=== PATIENT | male | born 1975 | race Two or more races ===

== ENCOUNTER 2019-03-28 16:32 | Inpatient (IN) | payer OTHER ==
[~2019-03-28] VITALS: Ht 172.7 cm; Wt 78.0 kg
--- NOTE | 2019-03-28 16:47 | NUR ---
JILL JUSTICE AT BEDSIDE FOR EVAL.
--- NOTE | 2019-03-28 16:50 | NUR ---
PT BIBRA/PD. IN CUSTODY, PER REPORT PT WAS AGITATED IN A HOLDING CELL, GOT AGITATED AND POSSIBLY ISERTED A FOREIGN BODY UP HIS RECTUM. PER REPORT, PT WAS GIVEN HALDOL AND ATIVAN PRIOR TO TRANSFER. SEDATED FINISHING POWDER PRESS OPERATOR. PLACED ON MONITOR. VSS. AWAITING MD TENA.
--- NOTE | 2019-03-28 17:12 | NUR ---
ECOLOGY TEACHER AT BEDSIDE FOR BLOOD DRAW.
[2019-03-28 17:17] LABS: BASOPHILS # (AUTO) 0.1 /CMM (0.0-0.2); BASOPHILS % (AUTO) 0.7 % (0.0-2.0); EOSINOPHILS % (AUTO) 2.2 % (0.0-6.0); HEMATOCRIT 39 % (39-51); HEMOGLOBIN 13.3 g/dL (13.5-17.5); LYMPHOCYTES # (AUTO) 1.5 /CMM (0.8-4.8); LYMPHOCYTES % (AUTO) 19.2 % (20.0-44.0); MEAN CORPUSCULAR HGB CONC 34 g/dl (31.0-36.0); MEAN CORPUSCULAR VOLUME 87 fL (80-96); MONOCYTES # (AUTO) 0.8 /CMM (0.1-1.30); MONOCYTES % (AUTO) 10.5 % (2.0-12.0); NEUTROPHILS # (AUTO) 5.2 /CMM (1.8-8.9); NEUTROPHILS % (AUTO) 67.4 % (43.0-81.0); PLATELET COUNT (AUTO) 278 /CMM (150-450); RED BLOOD CELL COUNT(AUTO) 4.49 MIL/uL (4.5-6.0); WHITE BLOOD COUNT (AUTO) 7.7 K/uL (4.3-11.0)
[2019-03-28 17:23] LABS: CALCIUM, SERUM 8.9 mg/dL (8.5-10.1); CARBON DIOXIDE 28 mmol/L (21-32); CHLORIDE 101 mmol/L (98-107); CREATININE 1.4 mg/dL (0.6-1.3); GLUCOSE 102 mg/dL (74-106); POTASSIUM 3.2 mmol/L (3.5-5.1); SODIUM SERUM 138 mmol/L (136-145); UREA NITROGEN, BLOOD 35 mg/dL (7-18)
[2019-03-28 17:29] LABS: ALANINE AMINOTRANSFERASE 27 U/L (12-78); ALBUMIN 3.6 g/dL (3.4-5.0); ALCOHOL, BLOOD < 3 mg/dL (0-0); ALKALINE PHOSPHATASE 81 U/L (46-116); ASPARTATE AMINOTRANSFERASE 34 U/L (15-37); BILIRUBIN,DIRECT 0.2 mg/dL (0.0-0.2); BILIRUBIN,TOTAL 0.7 mg/dL (0.2-1.0); TOTAL PROTEIN, SERUM 7.2 g/dL (6.4-8.2)
[2019-03-28 17:30] LABS: ACETAMINOPHEN < 2 ug/ml (10-30); SALICYLATE < 0.2 mg/dL (2.8-20.0)
[2019-03-28] MEDS ORDERED: POTASSIUM CHLORIDE 20 MEQ TAB.PRT.SR PO ONE (18:30)
[2019-03-28] MEDS ORDERED: IV NS 0.9% 1,000 ML BAG IV ONE (18:30)
[2019-03-28 18:50] LABS: APPEARANCE,URINE SL CLOUDY (CLEAR); BILIRUBIN,URINE 1+ (NEGATIVE); BLOOD, URINE TRACE Ery/uL (NEGATIVE); COLOR,URINE DARK YELLO (YELLOW); KETONES,URINE TRACE (NEGATIVE); LEUKOCYTE ESTERASE ,URINE NEGATIVE (NEGATIVE); NITRITE, URINE NEGATIVE (NEGATIVE); PH,URINE 5.5 (5.0-8.0); PROTEIN,URINE 1+ mg/dl (NEGATIVE); UGLUCOSE NEGATIVE (NEGATIVE); UROBILINOGEN,URINE 0.2 EU/dL (0.2)
--- NOTE | 2019-03-28 18:52 | NUR ---
CALLED DR VALVERDE; HE SPOKE WITH DR RUANO
--- NOTE | 2019-03-28 18:52 | NUR ---
CALLED FOR TELE BED, TURNED IN MOVE SHEET.
--- NOTE | 2019-03-28 19:12 | NUR ---
PT STILL SEDATED, ON MONITOR W/ STABLE VITALS. ENDORSED TO MONICA RN FOR ALLIE.
--- NOTE | 2019-03-28 19:17 | NUR ---
PT ENDORSED TO ME FROM ROSALIE GATES.
[2019-03-28] MEDS ORDERED: Magnesium 1GM/D5W 100ML PREMIX 200 ML IV ONE ×2 (19:18→20:28)
[2019-03-28] MEDS ORDERED: SODIUM BICARBONATE SYR 50 MEQ/50 ML DISP.SYRIN IV ONE (19:30)
[2019-03-28] MEDS ORDERED: MAG HYDROX/AL HYDROX/SIMETH 30 ML UDC PO PRN (20:00)
[2019-03-28] MEDS ORDERED: HYDROCODONE/APAP 5/325MG 1 EACH TABLET PO PRN (20:00)
[2019-03-28] MEDS ORDERED: Z GUARD REMEDY 2 OZ OINT TP PRN (20:00)
[2019-03-28] MEDS ORDERED: ACETAMINOPHEN 325 MG TABLET PO PRN (20:00)
[2019-03-28] MEDS ORDERED: MAGNESIUM CITRATE 296 ML BOTTLE PO ONE (20:00)
[2019-03-28] MEDS ORDERED: LORAZEPAM INJ 2 MG/ML VIAL IV PRN (20:00)
[2019-03-28] MEDS ORDERED: ZOLPIDEM TARTRATE 5 MG TABLET PO PRN (20:00)
[2019-03-28] MEDS ORDERED: MAGNESIUM HYDROXIDE 30 ML UDC PO PRN (20:00)
[2019-03-28] MEDS ORDERED: ONDANSETRON HCL/PF 4 MG/2 ML VIAL IVP PRN (20:00)
--- NOTE | 2019-03-28 20:26 | NUR ---
REPORT GIVEN TO ROSALIE ROWLAND FOR 329 TELE
[2019-03-28] MEDS ORDERED: SODIUM BICARBONATE SYR 50 MEQ/50 ML DISP.SYRIN ONE (20:28)
--- NOTE | 2019-03-28 20:49 | NUR ---
[facility]
[2019-03-28 20:50] VITALS: BP 112/64
[2019-03-28 22:01] LABS: BACTERIA,URINE Few /HPF (None Seen); RBC,URINE 0-3 /HPF (0-2); WBC,URINE 0-2 /HPF (0-3)
[2019-03-28 22:02] LABS: SQUAMOUS EPITHELIAL CELL,UR Few /HPF (None Seen)
[2019-03-28] MEDS: IV D5/0.45 NACL 1,000 ML IV PRN (22:42)
[2019-03-29] VITALS: BP 122/66
[2019-03-29 04:29] VITALS: BP 107/59
[2019-03-29 06:20] LABS: BASOPHILS % (AUTO) 0.6 % (0.0-2.0); EOSINOPHILS % (AUTO) 3.6 % (0.0-6.0); HEMATOCRIT 39 % (39-51); HEMOGLOBIN 12.9 g/dL (13.5-17.5); LYMPHOCYTES # (AUTO) 1.9 /CMM (0.8-4.8); LYMPHOCYTES % (AUTO) 28.4 % (20.0-44.0); MEAN CORPUSCULAR HGB CONC 33 g/dl (31.0-36.0); MEAN CORPUSCULAR VOLUME 88 fL (80-96); MONOCYTES # (AUTO) 0.6 /CMM (0.1-1.30); MONOCYTES % (AUTO) 9.5 % (2.0-12.0); NEUTROPHILS # (AUTO) 3.8 /CMM (1.8-8.9); NEUTROPHILS % (AUTO) 57.9 % (43.0-81.0); PLATELET COUNT (AUTO) 236 /CMM (150-450); RED BLOOD CELL COUNT(AUTO) 4.42 MIL/uL (4.5-6.0); WHITE BLOOD COUNT (AUTO) 6.6 K/uL (4.3-11.0)
[2019-03-29 06:25] LABS: CALCIUM, SERUM 8.1 mg/dL (8.5-10.1); MAGNESIUM 2.3 mg/dL (1.8-2.4)
[2019-03-29 06:31] LABS: THYROID STIMULATING HORMONE 1.168 uIU/mL (0.358-3.74)
--- NOTE | 2019-03-29 06:35 | NUR ---
COMPUTER TAPE LIBRARIAN NOTES PT SLEEPING. AROUSABLE TO TACTILE STIMULI. NOT IN ANY DISTRESS. NO SOB NOTED. NO S/SX OF ANY PAIN OR DISCOMFORT AT THIS TIME. ON TELE SR @ 62 WITH IVF INFUSING WELL. MONITORED ACCORDINGLY. CALL LIGHT WITHIN REACH. BED IN LOWEST POSITION. SR UP X 3 WITH BED ALARM ON FOR SAFETY. WILL ENDORSE TO NEXT SHIFT.
--- NOTE | 2019-03-29 07:07 | NUR ---
BLAST FURNACE HELPER OPENING NOTES RECEIVED PT ASLEEP IN BED, AROUSABLE TO TACTILE STIMULI. HOB ELEVATED. NO ACUTE SIGNS OF DISTRESS NOTED. ON ROOM AIR, BREATHING EVEN AND UNLABORED. ON TELE-MONITORING WITH CURRENT READING OF SR WITH HR ON THE 80'S. IV ACCESS ON LAC INTACT AND PATENT, IVF OF D5 1/2 NS @ 125 ML/HR INFUSING, NO S/S OF INFILTRATIONS NOTED. SAFETY MEASURES IN PLACE . BED IN LOW LOCKED POSITION WITH SR UP X3. CALL LIGHT WITHIN REACH. WILL CONTINUE TO MONITOR ACCORDINGLY.
[2019-03-29] MEDS: PANTOPRAZOLE 40 MG TABLET.DR PO SCH (07:52)
[2019-03-29 08:09] VITALS: BP 135/63
[2019-03-29] MEDS: IV D5/0.45 NACL 1,000 ML IV PRN ×2 (08:09→20:10)
[2019-03-29] MEDS ORDERED: BUPR100T5 PO (08:13)
[2019-03-29] MEDS ORDERED: ARIP5TAB10 PO (08:13)
[2019-03-29] MEDS ORDERED: HYDR-4384 PO (08:13)
[2019-03-29] MEDS ORDERED: TRAM50TA2 PO (08:13)
--- NOTE | 2019-03-29 08:15 | NUR ---
RN NOTES RECEIVED CALL FROM DR VALVERDE WITH ORDERED TO GIVE MAGNESIUM CITRATE ONE BOTTLE AND STAT KUB. WILL CARRY OUT ORDERS.
[2019-03-29] MEDS ORDERED: MAGNESIUM CITRATE 296 ML BOTTLE PO ONE (08:30)
[2019-03-29] MEDS: POTASSIUM CHLORIDE 20 MEQ TAB.PRT.SR PO SCH ×3 (10:12→12:13)
--- NOTE | 2019-03-29 12:14 | NUR ---
RN NOTES PATIENT NOTED WITH LOW LEVEL POTASSIUM 3.0 THIS MORNING. ADMINISTERED K-DUR 60MEQ PO ORDERED. PT WITH NO BOWEL MOVEMENT NOTED AT THIS TIME DESPITE GIVING MAGNESIUM OF CITRATE 296ML BOTTLE X1 THIS MORNING. ADVISED PT TO CALL STAFF IF HE FEELS DOING BOWEL MOVEMENT AND STATED 'OK". WILL CONTINUE TO MONITOR
--- NOTE | 2019-03-29 13:51 | NUR ---
RN NOTES PT DID BOWEL MOVEMENT AND STOOL WAS STRAINED. FOREIGN BODY CAME OUT WHICH IS A PLASTIC ARMBAND WITH METAL AT THE END WITH TWO HOLES IN IT. METAL SHOWED IN THE ABD X-RAY SAME THE ONE THAT CAME OUT. MARYJANE MAURICE MADE AWARE WITH ORDER TO PUT PT ON REGULAR DIET.
--- NOTE | 2019-03-29 13:52 | NUR ---
Social service consult requested by Dr. Lynne for possible homelessness. Pt. is a 43 year old male who was brought to [facility] by [employer] from retirement due to rectal foreign object. SW met with pt bedside. Pt. is alert and oriented x 4. Per RN Nicolás, pt. had inserted his jail metal name ID band and not a pair of glasses into his rectum. Pt. states he was arrested yesterday morning for vandalism and taken to retirement where he inserted the name ID band in his rectum. When asked why did he do that, pt. just has a smirk and doesn't state why. Pt. states he is homeless and has been for the past 2 years. Pt. receives GR and Food stamps monthly. Pt. is a methamphetamine user and uses weekly. Pt. also smokes 2 cigarettes per day. Pt. states he has Depression but is not suicidal or homicidal at this time. SW offered fpc placement and pt. is willing to go to fpc when discharged. SW informed pt, since SW is not in the hospital tomorrow she will have case managers arrange for fpc placement. Pt. agreed. Pt. will be given the following resources upon discharge: [facility] located at [address] [place] [address] ; [facility], [address] [place] [address] [place]. A [place] ; [facility], [address] [facility] ; [facility] Homeless Resource Directory which includes food stamps, transitional housing, showers and hot meals etc; Mental Health clinics such as [facility] ; [facility] ; Health clinics;[facility] and Alcohol treatment centers such as [facility], ; [facility] Substance Abuse Hotline and [facility] . Pt. will require TAP card upon discharge. Homeless Waiver form has been placed in the chart for pt. to sign upon discharge. No other social service needs are requested at this time. SW is available, if needed.
[2019-03-29] MEDS ORDERED: TRAMADOL HCL 50 MG TABLET PO PRN (15:00)
--- NOTE | 2019-03-29 15:14 | NUR ---
RN NOTES PRINCESS GRIJALVA CAME AND SPOKED TO PT. SHE OFFERED LONG TERM PLACEMENT TO PT AND WILLING TO GO WHEN DISCHARGE TOMORROW. HOMELESS WAIVER FORM PLACE ON CHART AND WILL BE SIGNED BY PT UPON DISCHARGE. PT WILL REQUIRE TAP CAR UPON DISCHARGE.
--- NOTE | 2019-03-29 15:55 | NUR ---
RN NOTES RECEIVED CALL FROM PHARMACY TO ASK IF PT ALLERGIC TO ANY MEDICATIONS. WENT TO ASKED PT AND STATED THAT HE'S NOT ALLERGIC TO ANY MEDICATIONS OR FOOD. ALLERGY STATUS UPDATED.
[2019-03-29 16:09] VITALS: BP 98/51
--- NOTE | 2019-03-29 19:06 | NUR ---
MS RN CLOSING NOTES PT IN BED RESTING AT MODERATE HIGH BACKREST POSITION. A/O X3. ABLE TO MAKE NEEDS KNOWN. ON ROOM AIR, TOLERATING WELL WITH NO SOB NOTED. IV ACCESS ON LAC INTACT AND PATENT, IVF OF D5 1/2 NS @ 125 ML/HR INFUSING, NO S/S OF INFILTRATIONS NOTED. ALL NEEDS NAD CARE ATTENDED WELL. SAFETY MEASURES KEPT IN PLACE . BED IN LOW LOCKED POSITION WITH SR UP X2. CALL LIGHT WITHIN REACH. WILL ENDORSE TO TEXTILE MACHINE MAINTENANCE MECHANIC NURSE FOR ALLIE..
--- NOTE | 2019-03-29 19:10 | NUR ---
MS PM RN OPENING NOTES BEDSIDE REPORT RECIEVED FROM ALDEN WIGGINS. PT IN BED RESTING AWAKENS TO VOICE. POC REVIEWED QUESTIONS CONCERNS ADDRESSED. A/O X3. ON ROOM AIR, TOLERATING WELL WITH NO SOB NOTED. IV ACCESS ON LAC FLUSHED INTACT AND PATENT, IVF OF D5 1/2 NS @ 125 ML/HR INFUSING, NO S/S OF INFILTRATIONS NOTED. SAFETY MEASURES KEPT IN PLACE . BED IN LOW LOCKED POSITION WITH SR UP X2. CALL LIGHT WITHIN REACH. WILL CONTINUE TO MONITOR.
[2019-03-29 20:00] VITALS: BP 114/70
[2019-03-30] MEDS: IV D5/0.45 NACL 1,000 ML IV PRN ×2 (06:18→14:50)
[2019-03-30] MEDS: PANTOPRAZOLE 40 MG TABLET.DR PO SCH (06:18)
[2019-03-30 06:34] LABS: CALCIUM, SERUM 7.4 mg/dL (8.5-10.1); CREATININE 0.9 mg/dL (0.6-1.3); POTASSIUM 4.2 mmol/L (3.5-5.1)
--- NOTE | 2019-03-30 06:38 | NUR ---
MS RN PM CLOSING NOTES PT IN BED RESTING. A/O X3. ABLE TO MAKE NEEDS KNOWN. ON ROOM AIR, TOLERATING WELL WITH NO SOB NOTED. PATIENT REPORTS HE WILL PR[facility]AB[facility] DISCHARGE. IV ACCESS ON LAC INTACT AND PATENT, IVF OF D5 1/2 NS @ 125 ML/HR INFUSING, NO S/S OF INFILTRATIONS NOTED. SAFETY MEASURES IN PLACE. BED IN LOW LOCKED POSITION WITH SR UP X2. CALL LIGHT WITHIN REACH.
--- NOTE | 2019-03-30 07:43 | NUR ---
M/S RN OPENING NOTES RECEIVED PATIENT ON BED, A/O X 4 AND ABLE TO MAKE NEEDS KNOWN. RESPIRATION EVEN AND NON LABORED WITH PRESENCE OF ACUTE RESPIRATORY DISTRESS. ABDOMEN SOFT AND NON DISTENDED WITH ACTIVE BOWEL SOUNDS. DENIES PAIN AND DISCOMFORT. WANTED TO REST AT THIS TIME. SKIN WARM TO TOUCH AND DRY. IV SITE AT LEFT AC RUNNING D5 1/2 NS AT 125 ML/HR, SITE NO S/SX OF INFILTRATION. ALL CONCERNS ADDRESSED, CALL LIGHT WITHIN REACH. WILL CONTINUE TO EVALUATE CARE.
[2019-03-30 08:00] VITALS: BP 100/62
[2019-03-30] MEDS: ARIPIPRAZOLE 5 MG TABLET PO SCH (08:34)
[2019-03-30] MEDS: buPROPion SR 100 MG TABLET.ER PO SCH (08:34)
[2019-03-30 09:26] LABS: BASOPHILS # (AUTO) 0.1 /CMM (0.0-0.2); BASOPHILS % (AUTO) 0.7 % (0.0-2.0); EOSINOPHILS % (AUTO) 1.9 % (0.0-6.0); HEMATOCRIT 38 % (39-51); HEMOGLOBIN 13.1 g/dL (13.5-17.5); LYMPHOCYTES # (AUTO) 1.3 /CMM (0.8-4.8); MEAN CORPUSCULAR HGB CONC 34 g/dl (31.0-36.0); MEAN CORPUSCULAR VOLUME 88 fL (80-96); MONOCYTES # (AUTO) 0.9 /CMM (0.1-1.30); MONOCYTES % (AUTO) 8.5 % (2.0-12.0); NEUTROPHILS # (AUTO) 8.3 /CMM (1.8-8.9); NEUTROPHILS % (AUTO) 76.9 % (43.0-81.0); PLATELET COUNT (AUTO) 234 /CMM (150-450); RED BLOOD CELL COUNT(AUTO) 4.35 MIL/uL (4.5-6.0); WHITE BLOOD COUNT (AUTO) 10.8 K/uL (4.3-11.0)
--- NOTE | 2019-03-30 10:00 | NUR ---
M/S RN NOTES TEMP 98.1, SKIN WARM TO TOUCH, DENIES CHILLS, LIGHTHEADEDNESS. LIGHT PAIN 2/10 TO BACK. ADMINISTERED TYLENOL ORDERED. ADVISED TO REPOSITION OR AMBULATE KALANI.
--- NOTE | 2019-03-30 10:55 | NUR ---
M/S RN NOTES TEMP 97.4. LEFT AC IV PULLED OUT.
--- NOTE | 2019-03-30 11:06 | NUR ---
M/S RN NOTES RE-INSERT ANOTHER LINE AT RIGHT FOREARM, PATENT IN FLUSHING. CONTINUE IVF.
[2019-03-30 16:00] VITALS: BP 109/60
--- NOTE | 2019-03-30 19:26 | NUR ---
M/S RN CLOSING NOTES PATIENT A/O X 4, ABLE TO MAKE NEEDS KNOWN AND RESPONSIVE TO ALL STIMULI. RESPIRATION EVEN AND NON LABORED WITH NO ACUTE RESPIRATORY DISTRESS, LUNGS CLEARED BILATERALLY. ABDOMEN SOFT AND NON DISTENDED WITH ACTIVE BOWEL SOUNDS,CONTINENT B&B, URINAL ON BEDSIDE, LBM TODAY LOOSE STOOLS, NO SEEN OBJECT WHILE STRAINING. SKIN WARM TO TOUCH AND DRY, INTACT. DENIES PAIN AND DISCOMFORT. IV SITE AT RIGHT FA, PATENT IN FLUSHING, NO S/SX OF INFILTRATION. ALL CONCERNS ADDRESSED. PLACED CALL LIGHT WITHIN REACH. ENDORSED PATIENT TO NEXT SHIFT.
--- NOTE | 2019-03-30 19:27 | NUR ---
MS RN OPENING NOTES Received patient asleep, easily awaken, on side lying position on bed. On RA, no SOB/respiratory distress noted. Afebrile, patient denies any discomfort at this time. Kept on bed clean, dry and comfortable. Call light within easy reach. Will continue to monitor accordingly.
[2019-03-30 20:00] VITALS: BP 111/59
[2019-03-31] MEDS: IV D5/0.45 NACL 1,000 ML IV PRN ×2 (00:20→08:03)
[2019-03-31 06:35] LABS: BASOPHILS % (AUTO) 0.4 % (0.0-2.0); EOSINOPHILS % (AUTO) 3.1 % (0.0-6.0); HEMATOCRIT 38 % (39-51); LYMPHOCYTES # (AUTO) 0.9 /CMM (0.8-4.8); LYMPHOCYTES % (AUTO) 10.1 % (20.0-44.0); MEAN CORPUSCULAR HGB CONC 34 g/dl (31.0-36.0); MEAN CORPUSCULAR VOLUME 88 fL (80-96); MONOCYTES # (AUTO) 0.7 /CMM (0.1-1.30); MONOCYTES % (AUTO) 7.4 % (2.0-12.0); NEUTROPHILS # (AUTO) 7.1 /CMM (1.8-8.9); PLATELET COUNT (AUTO) 235 /CMM (150-450); RED BLOOD CELL COUNT(AUTO) 4.35 MIL/uL (4.5-6.0)
--- NOTE | 2019-03-31 06:36 | NUR ---
MS RN CLOSING NOTES Patient asleep, easily awaken on bed. On RA, no SOB/respiratory distress noted. No complaints made at this time. Afebrile the whole shift, no new unusualities noted. All nursing needs attended. Kept clean, dry and comfortable. On fall precautions, call light within easy reach. Endorsed to the next shift.
[2019-03-31 06:55] LABS: CALCIUM, SERUM 7.6 mg/dL (8.5-10.1); CREATININE 0.8 mg/dL (0.6-1.3); POTASSIUM 4.3 mmol/L (3.5-5.1)
--- NOTE | 2019-03-31 07:29 | NUR ---
M/S RN OPENING NOTES RECEIVED PATIENT ON BED, A/O X 4, RESPONSIVE TO ALL STIMULI, ABLE TO MAKE NEEDS KNOWN. RESPIRATION EVEN AND NON LABORED WITH NO ACUTE RESPIRATORY DISTRESS. ABDOMEN SOFT AND NON DISTENDED WITH ACTIVE BOWEL SOUNDS. DENIES PAIN AND DISCOMFORT. SKIN WARM TO TOUCH AND DRY. IV SITE AT RIGHT FA AT D5 1/2 NS AT 125 ML/HR, IV SITE PATENT IN FLUSHING. ALL CONCERNS ADDRESSED. PLACED CALL LIGHT WITHIN REACH. WILL CONTINUE TO EVALUATE CARE.
[2019-03-31 08:00] VITALS: BP 116/66
[2019-03-31] MEDS: PANTOPRAZOLE 40 MG TABLET.DR PO SCH (08:03)
[2019-03-31] MEDS: ARIPIPRAZOLE 5 MG TABLET PO SCH (08:03)
[2019-03-31] MEDS: buPROPion SR 100 MG TABLET.ER PO SCH (08:03)
--- NOTE | 2019-03-31 13:00 | NUR ---
M/S RN NOTES PATIENT NOTIFIED FOR DC. CLOTHES GIVEN - PANTS, SHIRT AND A PAIR OF SHOES.
--- NOTE | 2019-03-31 14:00 | NUR ---
FABRICATION DEPARTMENT SUPERVISORLUMP MAKER NOTES PATIENT DISCHARGE TO [facility] PATIENT PREFERRED. GIVEN INFORMATION WITH ADDRESS AND TELEPHONE NUMBER, PATIENT SIGNED HOMELESS WAIVER. EXIT CARE GIVEN TO PATIENT WITH ALL CONCERNS ATTENDED, RESOURCES INFORMATION GIVEN PATIENT DISCUSSION WITH PLANT AND EQUIPMENT WORKER. GIVEN CLOTHES (SHIRT, PANTS, SHOES) AND TAP CARD FOR THE DAY. WALLET THE ONLY BELONGING. PATIENT A/OX 4, RESPONSIVE TO ALL STIMULI. RESPIRATION EVEN AND NON LABORED WITH NO ACUTE RESPIRATORY DISTRESS. ABDOMEN SOFT AND NON DISTENDED WITH ACTIVE BOWEL SOUNDS. SKIN WARM TO TOUCH, DRY AND INTACT. REFUSE SKIN PICTURE AT BUTTOCKS SEEN UPON ADMISSION BUT ABLE TO ASSESS, SLIGHT DISCOLORATION STILL PRESENCE WITH NO OPEN SKIN BREAKDOWN. IV SITE REMOVED WITH NO BLEEDING NOTED. PATIENT DISCHARGED IN STABLE CONDITION AND APPRECIATIVE WITH CARE RECEIVED. LEFT HOSPITAL IN SAFE CONDITION. Addendum: 03/31/19 at 1639 by ROSE PEREZ RN M/S LUMP MAKER NOTES PATIENT DISCHARGE TO [facility] PATIENT PREFERRED. GIVEN INFORMATION WITH ADDRESS AND TELEPHONE NUMBER, PATIENT SIGNED HOMELESS WAIVER. EXIT CARE GIVEN TO PATIENT WITH ALL CONCERNS ATTENDED, RESOURCES INFORMATION GIVEN PATIENT DISCUSSION WITH PLANT AND EQUIPMENT WORKER. GIVEN CLOTHES (SHIRT, PANTS, SHOES) AND TAP CARD FOR THE DAY. WALLET THE ONLY BELONGING. PATIENT A/OX 4, RESPONSIVE TO ALL STIMULI. RESPIRATION EVEN AND NON LABORED WITH NO ACUTE RESPIRATORY DISTRESS. ABDOMEN SOFT AND NON DISTENDED WITH ACTIVE BOWEL SOUNDS. SKIN WARM TO TOUCH, DRY AND INTACT. REFUSE SKIN PICTURE AT BUTTOCKS SEEN UPON ADMISSION BUT ABLE TO ASSESS, SLIGHT DISCOLORATION STILL PRESENCE WITH NO OPEN SKIN BREAKDOWN. IV SITE REMOVED WITH NO BLEEDING NOTED. PATIENT DISCHARGED IN STABLE CONDITION AND APPRECIATIVE WITH CARE RECEIVED. LEFT HOSPITAL IN SAFE CONDITION.
== END 2019-03-31 14:15 | disposition home or self-care (01) | DRG 254 ==
LOC: ER 16:37 → MED 19:48 → TELE 20:45 → MED 03-29 08:30
PROVIDERS: ADMIT Student in an Organized Health Care Education/Training Program; ATTEND Nurse Practitioner Acute Care
DX: T18.5XXA Foreign body in anus and rectum, initial encounter (principal); N17.0 Acute kidney failure with tubular necrosis; G92 Toxic encephalopathy; I45.81 Long QT syndrome; X58.XXXA Exposure to other specified factors, initial encounter; Y92.149 Unspecified place in prison as the place of occurrence of the external cause; E87.6 Hypokalemia; N18.9 Chronic kidney disease, unspecified; F15.10 Other stimulant abuse, uncomplicated; D63.8 Anemia in other chronic diseases classified elsewhere; R50.9 Fever, unspecified
CPT/HCPCS: 36415; 71045-TC; 72170-TC; 74018; 80048-TC; 80061-TC; 80076-TC; 80305; 81000-TC; 82550-TC; 83735-TC; 84100-TC; 84443-TC; 85025-TC; 85730-TC; 87081-TC; G0378; G0480; J3475; J3490; J7030

== ENCOUNTER 2019-05-28 05:33 | Emergency (ER) | payer OTHER ==
[~2019-05-28] VITALS: Ht 172.7 cm; Wt 79.8 kg
[~2019-05-28 05:33] MED LIST: ARIP5TAB10 PO; BUPR100T5 PO
--- NOTE | 2019-05-28 05:43 | NUR ---
KATINA FROM STREET WITH [employer]. AAOX3. NO RESP DISTRESS NOTED. AGITATED, PARANOID AND MANIC. PT [employer] REPORT, PT WAS FOUND AT SOMEBODY'S HOUSE. PER REPORT PT WAS HIDING FROM SOMEONE. PT IS ALSO PARANOID THAT SOME WILL KILL HIM AND DOES NOT WANT THE CURTAIN TO BE CLOSED. PT IS CUFF IN BED WITH [employer] AT BEDSIDE. AWAITING MD FOR EVAL.
[2019-05-28] MEDS ORDERED: diphenhydrAMINE HCL 50 MG/ML VIAL ONE (05:49)
[2019-05-28] MEDS ORDERED: HALOPERIDOL LACTATE INJ 5 MG/ML VIAL ONE (05:49)
[2019-05-28] MEDS ORDERED: LORAZEPAM INJ 2 MG/ML VIAL ONE (05:50)
[2019-05-28] MEDS ORDERED: LORAZEPAM INJ 2 MG/ML VIAL IM ONE (06:00)
[2019-05-28] MEDS ORDERED: diphenhydrAMINE HCL 50 MG/ML VIAL IM ONE (06:00)
[2019-05-28] MEDS ORDERED: HALOPERIDOL LACTATE INJ 5 MG/ML VIAL IM ONE (06:00)
[2019-05-28 06:36] LABS: BASOPHILS % (AUTO) 0.1 % (0.0-2.0); EOSINOPHILS % (AUTO) 0.3 % (0.0-6.0); HEMATOCRIT 37 % (39-51); HEMOGLOBIN 12.7 g/dL (13.5-17.5); LYMPHOCYTES # (AUTO) 0.5 /CMM (0.8-4.8); MEAN CORPUSCULAR HGB CONC 34 g/dl (31.0-36.0); MEAN CORPUSCULAR VOLUME 87 fL (80-96); MONOCYTES % (AUTO) 7.5 % (2.0-12.0); NEUTROPHILS # (AUTO) 12.2 /CMM (1.8-8.9); NEUTROPHILS % (AUTO) 88.1 % (43.0-81.0); PLATELET COUNT (AUTO) 230 /CMM (150-450); RED BLOOD CELL COUNT(AUTO) 4.25 MIL/uL (4.5-6.0); WHITE BLOOD COUNT (AUTO) 13.9 K/uL (4.3-11.0)
[2019-05-28 06:45] LABS: CALCIUM, SERUM 8.2 mg/dL (8.5-10.1); CARBON DIOXIDE 23 mmol/L (21-32); CHLORIDE 97 mmol/L (98-107); CREATININE 1.3 mg/dL (0.6-1.3); GLUCOSE 104 mg/dL (74-106); POTASSIUM 3.2 mmol/L (3.5-5.1); SODIUM SERUM 131 mmol/L (136-145); UREA NITROGEN, BLOOD 29 mg/dL (7-18)
[2019-05-28 06:51] LABS: ALANINE AMINOTRANSFERASE 40 U/L (12-78); ALBUMIN 3.7 g/dL (3.4-5.0); ALCOHOL, BLOOD < 3 mg/dL (0-0); ALKALINE PHOSPHATASE 75 U/L (46-116); ASPARTATE AMINOTRANSFERASE 49 U/L (15-37); BILIRUBIN,DIRECT 0.3 mg/dL (0.0-0.2)
[2019-05-28 07:25] LABS: SALICYLATE 0.4 mg/dL (2.8-20.0)
[2019-05-28 07:26] LABS: ACETAMINOPHEN 0 ug/ml (10-30)
[2019-05-28 07:31] LABS: APPEARANCE,URINE Slightly Cloudy (CLEAR); BILIRUBIN,URINE SMALL (NEGATIVE); BLOOD, URINE Small Ery/uL (NEGATIVE); COLOR,URINE Dark (YELLOW); KETONES,URINE 15 (NEGATIVE); LEUKOCYTE ESTERASE ,URINE Negative (NEGATIVE); NITRITE, URINE Negative (NEGATIVE); PH,URINE 5.5 (5.0-8.0); PROTEIN,URINE 100 mg/dl (NEGATIVE); UGLUCOSE Negative (NEGATIVE)
[2019-05-28 07:52] LABS: SQUAMOUS EPITHELIAL CELL,UR Few /HPF (None Seen)
--- NOTE | 2019-05-28 07:56 | NUR ---
PATIEINT RESTING IN BED EYES CLOSE BREATHING REGULAR AND UNLABORED V/S TAKEN AND CHARTED.
[2019-05-28 08:15] LABS: BACTERIA,URINE None seen /HPF (None Seen)
--- NOTE | 2019-05-28 12:20 | NUR ---
Patient remain lethargic eyes open ,vitals taken and filed
--- NOTE | 2019-05-28 14:58 | NUR ---
Patient asleep but arousable noted able to able to ambulated to bathroom no dizzy continue to monitor
[2019-05-28 14:59] VITALS: BP 127/67
--- NOTE | 2019-05-28 15:12 | NUR ---
Patient GCS 14-15 able to make his needs know denies chest pain or dizzy he declined long term he stated going back to previous living arrangement
--- NOTE | 2019-05-28 15:57 | NUR ---
Social service consult requested by RUIZ Marcelino for homelessness. Pt. is a 43 year old male who was brought in by police and paramedics this am. Patient was agitated in the field. Appeared to be intoxicated with a stimulant. Patient was screaming incomprehensibly upon arrival. PRINCESS met with the pt. bedside. Pt. was sitting on the bed with his eyes closed. Pt. is alert and oriented x 3. Pt. states he is not homeless and lives with other people in [facility] at [address] 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 Pt. is a methamphetamine user and last used this morning. Pt. was a few weeks ago at [facility] drug treatment clements for 4 weeks. SW offered pt. drug treatment program referrals, however pt. declined. Pt. states he would like to go back to [facility]. PRINCESS informed pt. he will be provided with a TAP card. PRINCESS updated pt's RN Elda regarding pt's discharge plan. Per RN Elda, pt. is ambulatory with a steady gait. No other social service needs are requested at this time.
--- NOTE | 2019-05-28 16:06 | NUR ---
fabric and textile factory worker @ bedside confirmed patient non homeless
--- NOTE | 2019-05-28 16:17 | NUR ---
Up date seismic interpreter @ bedside DAVID newman patient declined [facility] [address] [place] [address] ,Patient awake alert info chcf from patient noted able to ambulated to HW and bathroom ,given tab card ( bus ticket )
== END 2019-05-28 16:17 | disposition home or self-care (01) ==
LOC: ER 05:34
DX: R45.1 Restlessness and agitation (principal); Z59.0 Homelessness
CPT/HCPCS: 36415; 80048; 80076; 80305; 80307; 80329; 81001; 85025; 96372 ×3; 99283; G0480; J1200; J1630; J2060; 81000-TC

== ENCOUNTER 2021-01-15 00:56 | Inpatient (IN) | payer OTHER ==
[~2021-01-15] VITALS: Ht 170.2 cm; Wt 87.7 kg
[2021-01-15] MEDS ORDERED: MAGNESIUM HYDROXIDE 30 ML UDC PO PRN (01:30)
[2021-01-15] MEDS ORDERED: ONDANSETRON HCL/PF 4 MG/2 ML VIAL IVP PRN (01:30)
[2021-01-15] MEDS ORDERED: LORAZEPAM INJ 2 MG/ML VIAL IV PRN (01:30)
[2021-01-15] MEDS ORDERED: ZOLPIDEM TARTRATE 5 MG TABLET PO PRN (01:30)
[2021-01-15] MEDS ORDERED: Z GUARD REMEDY 2 OZ OINT TP PRN (01:30)
[2021-01-15] MEDS ORDERED: HYDROCODONE/APAP 5/325MG TABLET PO PRN (01:30)
[2021-01-15] MEDS ORDERED: MORPHINE SULFATE INJ 2 MG/ML DISP.SYRIN IV PRN (01:30)
[2021-01-15] MEDS ORDERED: MAG HYDROX/AL HYDROX/SIMETH 30 ML UDC PO PRN (01:30)
[2021-01-15] MEDS ORDERED: ACETAMINOPHEN 325 MG TABLET PO PRN (01:30)
--- NOTE | 2021-01-15 09:30 | NUR ---
PATIENT DIRECT ADMITTED FROM [facility] ESCORTED BY 2EMTS WITH EDDIE. ADMIT DX IS NSTEMI. PATIENT DENIES CHEST PAIN OR DISTRESS, SYMMETRICAL FACE, AND STABLE VITAL SIGN, O2SAT 99% IN ROOM AIR. WILL CONTINUE TO MONITOR.
[2021-01-15 10:05] LABS: BASOPHILS # (AUTO) 0.1 /CMM (0.0-0.2); BASOPHILS % (AUTO) 0.8 % (0.0-2.0); EOSINOPHILS % (AUTO) 0.8 % (0.0-6.0); HEMATOCRIT 43 % (39-51); HEMOGLOBIN 14.2 g/dL (13.5-17.5); LYMPHOCYTES # (AUTO) 1.7 /CMM (0.8-4.8); MEAN CORPUSCULAR HGB CONC 33 g/dl (31.0-36.0); MEAN CORPUSCULAR VOLUME 86 fL (80-96); MONOCYTES # (AUTO) 0.9 /CMM (0.1-1.30); MONOCYTES % (AUTO) 8.5 % (2.0-12.0); NEUTROPHILS % (AUTO) 73.9 % (43.0-81.0); PLATELET COUNT (AUTO) 260 /CMM (150-450); RED BLOOD CELL COUNT(AUTO) 4.93 MIL/uL (4.5-6.0); WHITE BLOOD COUNT (AUTO) 10.8 K/uL (4.3-11.0)
[2021-01-15] MEDS ORDERED: TRAM50TA2 PO (10:11)
[2021-01-15] MEDS ORDERED: IBUP-1955 PO (10:11)
[2021-01-15] MEDS: PANTOPRAZOLE 40 MG TABLET.DR PO SCH (10:20)
[2021-01-15] MEDS: ASPIRIN 81 MG TAB.CHEW PO SCH (10:20)
[2021-01-15] MEDS: IV NS 0.9% 1,000 ML IV PRN ×2 (10:23→18:12)
[2021-01-15 10:59] LABS: CALCIUM, SERUM 8.6 mg/dL (8.5-10.1); CREATININE 1.3 mg/dL (0.6-1.3); POTASSIUM 3.8 mmol/L (3.5-5.1)
[2021-01-15 12:00] VITALS: BP 135/93
[2021-01-15] MEDS: ENOXAPARIN SODIUM 40 MG/0.4 ML DISP.SYRIN SQ SCH (12:22)
--- NOTE | 2021-01-15 13:50 | NUR ---
"Headwaitress consult: access services assistant consult requested for homelessness. Patient is 45-year-old, male. Per chart, patient was brought in by ambulance on 01/15/2021 for altered level of consciousness. SW met with patient at his bedside on the med-surg unit. Patient was alert and oriented x4. Patient was watching television and resting. Patient presented well-groomed. Patient stated that he is currently homeless and has been homeless for a couple of years. Patient stated that he was previously at a fdc but was kicked out due to substance use. Patient stated that his current source of income is food stamps and [employer]. SW asked patient if he has access to social support and patient stated that he has support from his sister Nazanin, . SW assessed patients history of substance use. Patient reported amphetamine and alcohol use from two nights ago and stated that he has not used substances for the last two months. Patient reported that he uses substances once in a while but not daily. SW assessed patients history of mental illness and patient stated that he has a history of Depression. Patient stated that he obtains psychiatric medication from [facility] or [facility]. Patient stated that his PCP from [facility] ([address] [place] [id number]; ) is Dr. Olson. Patient denies hallucinations or delusions. Patient denies current suicidal or homicidal ideation. SW offered patient resources for homelessness and substance use. Patient accepted the resources and thanked this SW. SW asked patient to sign homeless waiver and patient signed. SW filed waver in the patients chart. Patient stated that he will return to his prior living arrangement on the streets and will investigate shelters independently. PLAN: Patient plans to return to prior living arrangement on the streets at the time of discharge. No further SS intervention, however, SW will remain available as needed. Year-round shelters: [facility] [place] [address] [place] [place] [address] ; [facility] [place] [address] [place] [address]; [id number] [facility]. [facility] [address] SPA 4 | [facility] Provider: [facility] Address: [address] [place] [address], [address] # of Beds: 48 Population Served: [facility] Provider: First to Serve Address: [address] [facility], [address] # of Beds: 73 Population Served: [facility] 6 | [facility] Provider: [facility] Last Address: [address] [facility], [address] # of Beds: 63 Population Served: [facility] 3 | [facility] Provider: [facility] [place] Address: [address] [facility], [address] # of Beds: 75 Population Served: [facility] 8 | [facility] Provider: [facility] [place] Address: [address] [facility] [address] # of Beds: 80 Population Served: [place] 1 | [facility] Provider: [facility] [place] Address: [address] [place] [address], [address] # of Beds: 85 Population Served: [facility] 2 | [facility] Provider: [facility] Address: Confidential (please call for location) # of Beds: 52 Population Served: [facility] 4 | [facility] Provider: [facility] Address: [address] [facility] [facility], [address] # of Beds: 49 Population Served: [facility] Provider: First To Serve Address: [address] [facility], [address] # of Beds: 27 Population Served: [facility]: [facility]: [address] [address] ; [facility] [address] [facility] ; [facility] [address] . Food Resources: [employer] [facility] at [facility]- [address] [place]; Meet Each Need with Dignity ([facility]) [address] [address] [place]; [facility] [address] [facility]; [facility] [address]. Mental Health resources provided: [facility] [address] [place], [place] [address] ; [facility] [address] [address] [facility] [address], [place] [address] ; [facility] [address] [facility] [place], [place] [phone] ; [facility] [address] [place], [place] [address] Healthcare Clinics: [facility] [address] [facility], [address] [place]. [place] ; [facility] [address] [facility] [address] [place] [address]; [facility] [address] [facility] [place] [address] [phone]) [phone] Counseling--Outpatient [facility] [address] [facility], [address] [place], [place] [phone] (Specializes in in-depth psychotherapy for emotional distress: anxiety, depression, interpersonal conflicts, life transitions, childhood abuse) PSYCHIATRIC OUTPATIENT SERVICES [facility] Partial Hospitalization and Intensive Outpatient Program (Managed Care and [place] Only) [address] [facility] [address] [facility] Partial Hospitalization and Outpatient Program [address] [place], [place] [id number] [facility] Partial Hospitalization and Outpatient Program [address] [place], [place] [phone] [facility] [address] [facility]. [address] [place], [place] [phone] [facility] Partial Hospitalization and Outpatient Program [address] [address] [facility], [place] [phone] Substance use resources provided included: [facility] Substance Abuse Self-Helpline (SAS) ; [facility] [address] [facility]. [place] [address] ; [facility] [address] [facility] [address] ; [facility] [address] [facility] [id number] ; [facility] [address] [facility] [address] ; [facility] [address] [facility] [id number] ; [facility]; [facility] [place]; [facility]; Alcoholics Anonymous -SFV"
[2021-01-15 16:00] VITALS: BP 124/72
--- NOTE | 2021-01-15 19:30 | NUR ---
RN OPENING NOTES Patient was seen awake resting in bed. Patient's A/Ox4. Patient's on room air with no respiratory distress noted. Patient's on a tele monitor with no cardiac distress noted. Patient has an IV access on his RAC, which is intact & patent. Safety measures in place: Bed locked, side rails up x2, and call light within reach of the patient. Will continue to monitor the patient.
[2021-01-15 20:00] VITALS: BP 146/90
[2021-01-16] VITALS: BP 128/57
[2021-01-16] MEDS: IV NS 0.9% 1,000 ML IV PRN (02:21)
[2021-01-16 04:00] VITALS: BP 122/84
[2021-01-16 06:13] LABS: BASOPHILS % (AUTO) 0.7 % (0.0-2.0); EOSINOPHILS % (AUTO) 2.2 % (0.0-6.0); HEMATOCRIT 38 % (39-51); HEMOGLOBIN 12.9 g/dL (13.5-17.5); LYMPHOCYTES # (AUTO) 1.3 /CMM (0.8-4.8); LYMPHOCYTES % (AUTO) 17.8 % (20.0-44.0); MEAN CORPUSCULAR HGB CONC 34 g/dl (31.0-36.0); MEAN CORPUSCULAR VOLUME 87 fL (80-96); MONOCYTES # (AUTO) 0.5 /CMM (0.1-1.30); MONOCYTES % (AUTO) 7.1 % (2.0-12.0); NEUTROPHILS # (AUTO) 5.4 /CMM (1.8-8.9); NEUTROPHILS % (AUTO) 72.2 % (43.0-81.0); PLATELET COUNT (AUTO) 216 /CMM (150-450); RED BLOOD CELL COUNT(AUTO) 4.43 MIL/uL (4.5-6.0); WHITE BLOOD COUNT (AUTO) 7.4 K/uL (4.3-11.0)
--- NOTE | 2021-01-16 06:59 | NUR ---
RN CLOSING NOTES Patient was seen sleeping in bed. Patient's A/Ox4. Patient's on room air with no respiratory distress noted. Patient's on a tele monitor with no cardiac distress noted. Patient has an IV access on his RAC, which is intact & patent. Safety measures in place: Bed locked, side rails up x2, and call light within reach of the patient. Will endorse care to day shift nurse.
[2021-01-16 07:09] LABS: THYROID STIMULATING HORMONE 2.836 uIU/mL (0.358-3.74)
[2021-01-16 07:20] LABS: CALCIUM, SERUM 8.1 mg/dL (8.5-10.1); MAGNESIUM 1.9 mg/dL (1.8-2.4); PHOSPHORUS 2.5 mg/dL (2.5-4.9); POTASSIUM 3.8 mmol/L (3.5-5.1)
--- NOTE | 2021-01-16 07:56 | NUR ---
COMMERCIAL FISHER OPENING NOTE RECEIVED PATIENT AWAKE IN BED, EATING BREAKFAST. A/O X4. ON ROOM AIR - TOLERATING WELL. NO SOB NOTED. NO PAIN NOTED AT THIS TIME. PATIENT IS VERY PLEASANT. AMBULATORY. IV ACCESS TO RIGHT AC #20 - RUNNING NS @ 125ML/HR. SAFETY PRECAUTIONS IN PLACE. CALL LIGHT WITHIN REACH. WILL CONTINUE TO MONITOR.
[2021-01-16 08:00] VITALS: BP 137/81
[2021-01-16] MEDS: ASPIRIN 81 MG TAB.CHEW PO SCH (08:34)
[2021-01-16] MEDS: PANTOPRAZOLE 40 MG TABLET.DR PO SCH (08:34)
[2021-01-16] MEDS: ENOXAPARIN SODIUM 40 MG/0.4 ML DISP.SYRIN SQ SCH (08:35)
--- NOTE | 2021-01-16 12:01 | NUR ---
WOOD FURNITURE ASSEMBLERPOST CLOSING SPECIALIST NOTE PATIENT DISCHARGED @ 1140. PATIENT STABLE, A/O X4. STABLE ON ROOM AIR. NO SOB NOTED, NO PAIN NOTED. PATIENT WAS GIVEN [facility] RESOURCES BY VENEER DRIER TAILER AND STATED HE WOULD SEEK OUT INDEPENDENTLY. SKIN INTACT. PATIENT WAS GIVEN CLOTHES TO WEAR. ALL EDUCATION AND EXITCARE GIVEN TO PATIENT - VERBALIZED UNDERSTANDING. PERSONAL MEDICATIONS GIVEN BACK TO PATIENT. IV REMOVED. WRISTBAND REMOVED. PATIENT GIVEN TAP CARD. PATIENT ACCOMPANIED TO LOBBY BY MYSELF.
== END 2021-01-16 11:50 | disposition home or self-care (01) | DRG 190 ==
LOC: TELE 09:24
PROVIDERS: ADMIT Internal Medicine; ATTEND Internal Medicine
DX: I21.4 Non-ST elevation (NSTEMI) myocardial infarction (principal); G92 Toxic encephalopathy; E66.9 Obesity, unspecified; I10 Essential (primary) hypertension; M62.82 Rhabdomyolysis; Z59.0 Homelessness; Z68.30 Body mass index [BMI] 30.0-30.9, adult; F19.10 Other psychoactive substance abuse, uncomplicated; Z87.828 Personal history of other (healed) physical injury and trauma
CPT/HCPCS: 36415; 80048-TC; 80061-TC; 82550-TC; 82553; 83735-TC; 84100-TC; 84443-TC; 84484-TC; 85025-TC; 87081-TC; 93307-TC; G0378; J1650; J7030